=== PATIENT | female | born 1950 | race Caucasian/White ===

== ENCOUNTER 2018-12-09 21:24 | Observation (INO) ==
[2018-12-09] MEDS ORDERED: SODIUM CHLORIDE 0.9% 500 ML IV SCH (22:00)
[2018-12-09 22:21] LABS: Basophils # (auto) 0.04 K/uL (0-0.2); Basophils % (auto) 0.5 %; Eosinophils # (auto) 0.13 K/uL (0-0.5); Eosinophils % (auto) 1.6 %; Hematocrit (blood only) 42.8 % (37-47); Hemoglobin 14.8 g/dL (12.0-16.0); Immature Granulocytes # (auto) 0.02 K/uL (0.00-0.02); Immature Granulocytes % (auto) 0.2 %; Lymphocytes # (auto) 1.46 K/uL (1.2-3.4); Lymphocytes % (auto) 18.1 %; Mean Corpuscular Hgb Conc 34.6 g/dL (32-36); Mean Corpuscular Volume 95.7 fL (80-100); Mean Platelet Volume 10.1 fL (7.4-10.4); Monocytes % (auto) 7.4 %; Neutrophils # (auto) 5.83 K/uL (1.4-6.5); Neutrophils % (auto) 72.2 %; Platelet Count 276 K/uL (130-400); RDW Coefficient of Variation 12.9 % (11.5-14.5); RDW Standard Deviation 44.8 fL (36.4-46.3); Red Blood Count 4.47 M/uL (4.2-5.4); White Blood Count 8.08 K/uL (4.8-10.8)
--- NOTE | 2018-12-09 22:29 | CT Scan Report ---
HEAD CT NONCONTRAST CT DOSE: 537.48 mGy.cm HISTORY: Altered mental status. TECHNIQUE: Multiaxial CT images of the head were performed without the use of intravenous contrast. A utomated exposure control was utilized for this study. A dose lowering technique was utilized adheri ng to the principles of ALARA. Comparison: None. Findings: Partial opacification of the ethmoid air cells with a fluid level within the right maxillar y sinus. The mastoid air cells are clear. The calvarium and skull base are intact. The ventricles and sulci are within normal limits. There is no mass, hematoma, midline shift, or acute infarct. Impression: No acute intracranial abnormality. Acute sinusitis as described above. Electronically signed by: López Looney M.D. 12/09/2018 10:28 PM
[2018-12-09 22:32] LABS: Partial Thromboplastin Ratio 1.2; Partial Thromboplastin Time 32.2 Seconds (21.0-31.0); Prothrombin Time 10.6 Seconds (9.0-12.0)
[2018-12-09 22:38] LABS: Alanine Aminotransferase 28 U/L (12-78); Albumin Level 3.9 gm/dl (3.4-5.0); Aspartate Aminotransferase 25 U/L (15-37); BUN Creatinine Ratio 24.2 (10-20); Blood Urea Nitrogen 23 mg/dl (7-18); Calcium 9.1 mg/dl (8.5-10.1); Carbon Dioxide 25 mmol/L (21-32); Chloride 107 mmol/L (98-107); Creatinine Clr Calc Pharmacy 47.1 ml/min; Est GFR (African American) 74.2; Glucose 96 mg/dl (70-99); Magnesium 2.3 mg/dl (1.8-2.4); Potassium 3.7 mmol/L (3.5-5.1); Sodium 142 mmol/L (136-145)
[2018-12-09 22:46] LABS: Appearance Urine Clear (Clear); Bilirubin Urine Negative (Negative); Blood Urine Negative (Negative); Color Urine Yellow; Glucose Urine UA Negative (Negative); Ketones Urine Negative (Negative); Leukocyte Esterase Urine Negative (Negative); Nitrite Urine Negative (Negative); Protein Urine Negative (Negative); Specific Gravity Urine 1.015 (1.000-1.030); Urobilinogen Urine Negative (Negative); pH Urine 5.5 (4.5-7.5)
[2018-12-09 22:48] LABS: Albumin Globulin Ratio 1.1 (0.9-2); Alkaline Phosphatase 71 U/L (45-117); Bilirubin,Total 0.2 mg/dl (0.2-1); Globulin 3.7 gm/dl (2.5-4.0); Total Protein 7.6 gm/dl (6.4-8.2); Troponin I < 0.015 ng/ml (0-0.045)
[2018-12-09 23:01] LABS: T4 Free Thyroxine 0.97 ng/dl (0.8-1.6)
[2018-12-09 23:09] LABS: Amphetamines+Metham, Urine Neg (Neg); Barbiturates, Urine Neg (Neg); Benzodiazepine, Urine Neg (Neg); Cocaine, Urine Neg (Neg); MDMA (Ecstacy), Urine Pos (Neg); Methadone, Urine Neg (Neg); Opiate, Urine Neg (Neg); Phencyclidine, Urine Neg (Neg)
[2018-12-09 23:13] LABS: Lyme Ab IgM w/WB Rflx Negative (Negative)
[2018-12-09 23:14] LABS: Lyme Ab IgG w/WB Rflx Negative (Negative)
[2018-12-09] MEDS ORDERED: AMPICILLIN/SULBACTAM SOD 3,000 MG in 0.9 % SODIUM CHLORIDE 100 ML IV STA (23:35)
--- OUTSIDE RECORDS SUMMARY | 2018-12-09 23:44 | External Medical Summary | Continuity of Care Document ---
:1950 Author Name Richar Vale Address Unavailable Unavailable , Care Team Providers Name Role Phone Andi Cabrera M.D.. 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) Allergies and Adverse Reactions Gabapentin CAPS (Allergy) Gabapentin SOLN (Allergy) Gabapentin TABS (Allergy) Medications Levothyroxine Sodium 50 MCG Oral Tablet Refills: 0 buPROPion HCl ER (XL) 150 MG Oral Tablet Extended Release 24 Hour Refills: 0 Estradiol 1 MG Oral Tablet Refills: 0 Zolpidem Tartrate 10 MG Oral Tablet Refills: 0 Progesterone Micronized 100 MG Oral Capsule Refills: 0 Ibuprofen 800 MG Oral Tablet Refills: 0 Estradiol 0.5 MG Oral Tablet Refills: 0 Multi-Vitamin TABS Refills: 0 Calcium 600 TABS Refills: 0 Procedures History of Section Status: Comp leted History of Oophorectomy Status: Complete d History of Hip Repair Reconstruction Of Gluteus Medius Muscl e Status: Completed Tendon Immunizations Immunizations not documented Family History Mother Family history of Hypertension (V17.49) Status: Active Father Family history of Hypertension (V17.49) Status: Active Social History - Smoking Status Former smoker Interventions Follow-ups/ReferralsFollow-up as needed; Done: 09 Apr 2014 Plan of Treatment Planned Observations Planned Goals not documented Results No Known Results Results not documented Encounters Appointment; David Cabrera M.D. 09-Apr-2014 16:00 Encounter Diagnosis: Problem not documented
[2018-12-10] MEDS ORDERED: ASPIRIN CHEW 324 MG PO STA (00:51)
[2018-12-10] MEDS ORDERED: NITROGLYCERIN SL 0.4 MG/TAB TAB SL PRN (01:47)
[2018-12-10] MEDS ORDERED: ONDANSETRON INJ 2 MG/ML 2 ML VIAL IV PRN (01:47)
[2018-12-10] MEDS ORDERED: ACETAMINOPHEN 325 MG TAB PO PRN (01:47)
[2018-12-10] MEDS ORDERED: PHARMACIST DISCHARGE MED REC CONSULT PRN (01:47)
--- NOTE | 2018-12-10 02:14 | Emergency Department Note ---
History of Present Illness General Chief complaint: Neuro Symptoms/Deficit Stated complaint: DISORIENTED,MEMORY LOSS Time Seen by Provider: 12/09/18 21:33 History of Present Illness This is a 67-year-old female presenting to the emergency department for evaluation of memory loss symptoms for the past 2 days. Much of the history is provided by a female friend who accompanies the patient to the department. Marialuisa guzman the patient returned from [place] late last week after visiting family. The patient has had intermittent episodes of forgetfulness and not making sense with words and phrases according to her female friend. Evidently today police showed up at the patient's home, and the patient was unable to determine how or why this occurred. The patient called her sister this afternoon, but does not r ecall this conversation. The patient herself has a history of hypothyroidism and progesterone use. She does not complain of headache, neck pain, chest pain, chest tightness, shortness of breath, palpitations, abdominal pain, numbness, or paresthesias. The patient does not readily drink alcohol or smoke tobacco. She does not have other significant chronic medical disease. She rates her current discomfort as 0/10, and admits that she is here at the urging of her friends and family. Home Medications Home Medications Medication Instructions Recorded Confirmed Type bupropion HCl [Wellbutrin XL] 150 mg PO DAILY 12/09/18 12/09/18 History estradiol 0.25 mg TRANSDERMAL 2XWK 12/09/18 12/09/18 History levothyroxine 50 mcg PO DAILY 12/09/18 12/09/18 History progesterone micronized 100 mg PO UD 12/09/18 12/09/18 History Allergies Allergy/AdvReac Type Severity Reaction Status Date / Time animal dander Allergy Mild EYES RED Unverified 04/03/14 11:28 AND SWOLLEN mold Allergy Mild EYES WATER Unverified 04/03/14 11:28 No Known Allergies Allergy Unknown NONE Verified 04/03/14 11:28 NEUROTIN Allergy Severe HIVES Uncoded 04/03/14 11:28 Dust Allergy Mild EYE WATER Uncoded 04/03/14 11:28 Past Med/Surg History Medical History Hypothyroid Social History Preferred Language: Marshallese Communication Ability: Effective Milk Delivery Driver Required: No Beliefs That Will Affect Care: Tenriism Tenriism Beliefs: Denominational Current Living Situation: Alone Other Information That Helps Us Care for You: No Feels Safe at Home: Yes Safety Concerns: Feels Safe At This Time Smoking Status: Never smoker Hx Alcohol Use: Yes Alcohol type: wine Hx Substance Use: No Review of Systems A total of 10 systems reviewed and were otherwise negative Physical Exam Vital Signs Vital Signs - 24 hr 12/09/18 21:28 12/09/18 22:59 12/10/18 00:02 Temperature 36.4 C L Temperature Source Oral Sepsis Recent Fever Within 48 Hours No Sepsis Action Taken by Nursing No Action Required Pulse Rate 71 Pulse Rate [Finger] 72 73 Respiratory Rate 16 16 16 Respiratory Effort / Characteristics Non-Labored Spontaneous Non-Labored Spontaneous Respiratory Depth Normal Normal Respiratory Pattern Blood Pressure 193/91 H Blood Pressure [Left Arm] 150/101 H 166/77 H Blood Pressure Mean 125 Blood Pressure Mean [Left Arm] 117 106 Blood Pressure Position Sitting Pulse Oximetry 99 100 98 Oxygen Delivery Method Room Air Room Air Room Air 12/10/18 00:51 12/10/18 01:30 12/10/18 04:09 Temperature 36.7 C 36.6 C Temperature Source Oral Oral Sepsis Recent Fever Within 48 Hours Sepsis Action Taken by Nursing Pulse Rate Pulse Rate [Finger] 68 75 68 Respiratory Rate 20 18 20 Respiratory Effort / Characteristics Non-Labored Non-Labored Respiratory Depth Normal Normal Respiratory Pattern Regular Regular Blood Pressure Blood Pressure [Left Arm] 162/85 H 170/84 H 128/73 Blood Pressure Mean Blood Pressure Mean [Left Arm] 110 112 91 Blood Pressure Position Pulse Oximetry 100 98 91 Oxygen Delivery Method Room Air Room Air Room Air VITALS: Vitals are noted on the nurse's note and reviewed by myself. Vital s igns stable. GENERAL: Well-developed, well-nourished, white female, who is in no acute distress and resting comfortably. Patient is cooperative with the examination. HEAD: Normocephalic atraumatic. EARS: External ear normal. External auditory canals clear, tympanic membranes pearly [place] without erythema or effusion bilaterally. EYES: Pupils equal round and reactive to light and accommodation. Conjunctivae without injection, sclerae without icterus. Extraocular movements intact. NOSE: Patent, turbinates without inflammation or discharge. MOUTH: Mucous membranes moist. Tonsils are not enlarged. Pharynx without erythema, blood, or exudate. Uvula midline. Airway patent. NECK: Supple without nuchal rigidity. No lymphadenopathy. No thyromegaly. Cervical spine is nontender. HEART: Regular rate and rhythm without murmurs gallops or rubs. LUNGS: Clear to auscultation bilaterally without wheezes, rales or rhonchi. No retractions or accessory muscle use. ABDOMEN: Positive normal bowel sounds x 4. Soft, nontender, without masses or organomegaly. No guarding or rebound tenderness. MUSCULOSKELETAL: No muscle atrophy, erythema, or edema noted. Full range of motion in all extremities. No tenderness to palpation. Normal gait. Strength 5/5 throughout. NEURO: Patient was alert and oriented to person place and time. CN II through XII grossly intact. No focal neurological deficits. Deep tendon reflexes 2+ throughout. GCS 15. SKIN: The skin was without rashes, erythema, edema, or bruising. Capillary refill less than 2 seconds. Course Administered Medications Gadobutrol (Gadavist 65ml) 5.6 ml IV ONCE PRN PRN Reason: Interaction Checking Stop: 12/14/18 03:28 Last Admin: 12/10/18 03:18 Dose: 5.6 ml Documented by: [id number] Discontinued Medications Aspirin (Aspirin) 324 mg PO NOW STA Stop: 12/10/18 00:52 Last Admin: 12/10/18 00:55 Dose: 324 mg Documented by: [id number] Diphenhydramine HCl (Benadryl Capsule) 25 mg PO NOW ONE Stop: 12/10/18 04:09 Last Admin: 12/10/18 04:18 Dose: 25 mg Documented by: [id number] Diphenhydramine HCl (Benadryl Capsule) Confirm Administered Dose 25 mg .ROUTE .STK-MED ONE Stop: 12/10/18 04:16 Last Admin: 12/10/18 04:16 Dose: Not Given Documented by: [id number] Sodium Chloride (Nss) 500 mls @ 125 mls/hr IV .Q4H LUISA Stop: 01/08/19 21:59 Last Infusion: 12/10/18 01:48 Dose: 0 mls/hr Documented by: [id number] Admin: 12/09/18 22:29 Dose: 125 mls/hr Documented by: [id number] Ampicillin Sodium/Sulbactam Sodium 3,000 mg/ Sodium Chloride 108 mls @ 200 mls/hr IV NOW STA Stop: 12/10/18 00:07 Last Infusion: 12/10/18 00:36 Dose: 0 mls/hr Documented by: [id number] Admin: 12/10/18 00:01 Dose: 200 mls/hr Documented by: [id number] Medical Decision Making Differential Diagnosis Differential includes acute coronary syndrome, myocardial infarction, CVA, TIA, anemia, infection, pneumonia, UTI, pyelonephritis, poor nutrition, dehydration, electrolyte disturbance,hypoglycemia, and others Laboratory Data Result diagrams: 12/09/18 22:08 12/09/18 22:08 Lab Results 12/09/18 12/09/18 12/09/18 Range/Units 21:39 22:08 22:08 WBC 8.08 (4.8-10.8) K/uL RBC 4.47 (4.2-5.4) M/uL Hgb 14.8 (12.0-16.0) g/dL Hct 42.8 (37-47) % MCV 95.7 (80-100) fL MCH 33.1 (25-34) pg MCHC 34.6 (32-36) g/dL RDW Std Deviation 44.8 (36.4-46.3) fL RDW Coeff of Karli 12.9 (11.5-14.5) % Plt Count 276 (130-400) K/uL MPV 10.1 (7.4-10.4) fL Immature Gran % (Auto) 0.2 % Neut % (Auto) 72.2 % Lymph % (Auto) 18.1 % [place] % (Auto) 7.4 % Eos % (Auto) 1.6 % Baso % (Auto) 0.5 % Immature Gran # (Auto) 0.02 (0.00-0.02) K/uL Neut # (Auto) 5.83 (1.4-6.5) K/uL Lymph # (Auto) 1.46 (1.2-3.4) K/uL [place] # (Auto) 0.60 H (0.11-0.59) K/uL Eos # (Auto) 0.13 (0-0.5) K/uL Baso # (Auto) 0.04 (0-0.2) K/uL PT 10.6 (9.0-12.0) Seconds INR 1.0 (0.9-1.1) APTT 32.2 H (21.0-31.0) Seconds PTT Ratio 1.2 Sodium (136-145) mmol/L Potassium (3.5-5.1) mmol/L Chloride (98-107) mmol/L Carbon Dioxide (21-32) mmol/L Anion Gap (3-11) BUN (7-18) mg/dl Creatinine (0.6-1.2) mg/dl Est Cr Clr Drug Dosing ml/min Est GFR ( Amer) Est GFR (Non-Af Amer) BUN/Creatinine Ratio (10-20) Glucose (70-99) mg/dl POC Glucose 91 (70-99) Lactate (0.4-2.0) mmol/L Calcium (8.5-10.1) mg/dl Magnesium (1.8-2.4) mg/dl Total Bilirubin (0.2-1) mg/dl AST (15-37) U/L ALT (12-78) U/L Alkaline Phosphatase (45-117) U/L Troponin I (0-0.045) ng/ml Total Protein (6.4-8.2) gm/dl Albumin (3.4-5.0) gm/dl Globulin (2.5-4.0) gm/dl Albumin/Globulin Ratio (0.9-2) TSH (0.300-4.500) uIu/ml Free T4 (0.8-1.6) ng/dl Urine Color Urine Appearance (Clear) Urine pH (4.5-7.5) Ur Specific [place] (1.000-1.030) Urine Protein (Negative) Urine Glucose (UA) (Negative) Urine Ketones (Negative) Urine Blood (Negative) Urine Nitrite (Negative) Urine Bilirubin (Negative) Urine Urobilinogen (Negative) Ur Leukocyte Esterase (Negative) Urine Opiates Screen (Neg) Ur Methadone, Qual (Neg) Urine Barbiturates (Neg) Ur Phencyclidine (PCP) (Neg) U Amphetamin/Meth Scrn (Neg) MDMA (Ecstasy) Screen (Neg) U Benzodiazepines Scrn (Neg) Ur Cocaine Metabolite (Neg) U Marijuana (THC) Screen (Neg) Lyme Disease IgG Ab (Negative) Lyme Disease IgM Ab (Negative) 12/09/18 12/09/18 12/09/18 Range/Units 22:08 22:08 22:08 WBC (4.8-10.8) K/uL RBC (4.2-5.4) M/uL Hgb (12.0-16.0) g/dL Hct (37-47) % MCV (80-100) fL MCH (25-34) pg MCHC (32-36) g/dL RDW Std Deviation (36.4-46.3) fL RDW Coeff of Karli (11.5-14.5) % Plt Count (130-400) K/uL MPV (7.4-10.4) fL Immature Gran % (Auto) % Neut % (Auto) % Lymph % (Auto) % [place] % (Auto) % Eos % (Auto) % Baso % (Auto) % Immature Gran # (Auto) (0.00-0.02) K/uL Neut # (Auto) (1.4-6.5) K/uL Lymph # (Auto) (1.2-3.4) K/uL [place] # (Auto) (0.11-0.59) K/uL Eos # (Auto) (0-0.5) K/uL Baso # (Auto) (0-0.2) K/uL PT (9.0-12.0) Seconds INR (0.9-1.1) APTT (21.0-31.0) Seconds PTT Ratio Sodium 142 (136-145) mmol/L Potassium 3.7 (3.5-5.1) mmol/L Chloride 107 (98-107) mmol/L Carbon Dioxide 25 (21-32) mmol/L Anion Gap 9.0 (3-11) BUN 23 H (7-18) mg/dl Creatinine 0.93 (0.6-1.2) mg/dl Est Cr Clr Drug Dosing 47.1 ml/min Est GFR ( Amer) 74.2 Est GFR (Non-Af Amer) 64.0 BUN/Creatinine Ratio 24.2 H (10-20) Glucose 96 (70-99) mg/dl POC Glucose (70-99) Lactate 1.1 (0.4-2.0) mmol/L Calcium 9.1 (8.5-10.1) mg/dl Magnesium 2.3 (1.8-2.4) mg/dl Total Bilirubin 0.2 (0.2-1) mg/dl AST 25 (15-37) U/L ALT 28 (12-78) U/L Alkaline Phosphatase 71 (45-117) U/L Troponin I < 0.015 (0-0.045) ng/ml Total Protein 7.6 (6.4-8.2) gm/dl Albumin 3.9 (3.4-5.0) gm/dl Globulin 3.7 (2.5-4.0) gm/dl Albumin/Globulin Ratio 1.1 (0.9-2) TSH 4.700 H (0.300-4.500) uIu/ml Free T4 0.97 (0.8-1.6) ng/dl Urine Color Urine Appearance (Clear) Urine pH (4.5-7.5) Ur Specific [place] (1.000-1.030) Urine Protein (Negative) Urine Glucose (UA) (Negative) Urine Ketones (Negative) Urine Blood (Negative) Urine Nitrite (Negative) Urine Bilirubin (Negative) Urine Urobilinogen (Negative) Ur Leukocyte Esterase (Negative) Urine Opiates Screen (Neg) Ur Methadone, Qual (Neg) Urine Barbiturates (Neg) Ur Phencyclidine (PCP) (Neg) U Amphetamin/Meth Scrn (Neg) MDMA (Ecstasy) Screen (Neg) U Benzodiazepines Scrn (Neg) Ur Cocaine Metabolite (Neg) U Marijuana (THC) Screen (Neg) Lyme Disease IgG Ab Negative (Negative) Lyme Disease IgM Ab Negative (Negative) 12/09/18 12/09/18 12/09/18 Range/Units 22:08 22:37 22:37 WBC (4.8-10.8) K/uL RBC (4.2-5.4) M/uL Hgb (12.0-16.0) g/dL Hct (37-47) % MCV (80-100) fL MCH (25-34) pg MCHC (32-36) g/dL RDW Std Deviation (36.4-46.3) fL RDW Coeff of Karli (11.5-14.5) % Plt Count (130-400) K/uL MPV (7.4-10.4) fL Immature Gran % (Auto) % Neut % (Auto) % Lymph % (Auto) % [place] % (Auto) % Eos % (Auto) % Baso % (Auto) % Immature Gran # (Auto) (0.00-0.02) K/uL Neut # (Auto) (1.4-6.5) K/uL Lymph # (Auto) (1.2-3.4) K/uL [place] # (Auto) (0.11-0.59) K/uL Eos # (Auto) (0-0.5) K/uL Baso # (Auto) (0-0.2) K/uL PT (9.0-12.0) Seconds INR (0.9-1.1) APTT (21.0-31.0) Seconds PTT Ratio Sodium (136-145) mmol/L Potassium (3.5-5.1) mmol/L Chloride (98-107) mmol/L Carbon Dioxide (21-32) mmol/L Anion Gap (3-11) BUN (7-18) mg/dl Creatinine (0.6-1.2) mg/dl Est Cr Clr Drug Dosing ml/min Est GFR ( Amer) Est GFR (Non-Af Amer) BUN/Creatinine Ratio (10-20) Glucose (70-99) mg/dl POC Glucose (70-99) Lactate (0.4-2.0) mmol/L Calcium (8.5-10.1) mg/dl Magnesium (1.8-2.4) mg/dl Total Bilirubin (0.2-1) mg/dl AST (15-37) U/L ALT (12-78) U/L Alkaline Phosphatase (45-117) U/L Troponin I (0-0.045) ng/ml Total Protein (6.4-8.2) gm/dl Albumin (3.4-5.0) gm/dl Globulin (2.5-4.0) gm/dl Albumin/Globulin Ratio (0.9-2) TSH Cancelled (0.300-4.500) uIu/ml Free T4 (0.8-1.6) ng/dl Urine Color Yellow Urine Appearance Clear (Clear) Urine pH 5.5 (4.5-7.5) Ur Specific [place] 1.015 (1.000-1.030) Urine Protein Negative (Negative) Urine Glucose (UA) Negative (Negative) Urine Ketones Negative (Negative) Urine Blood Negative (Negative) Urine Nitrite Negative (Negative) Urine Bilirubin Negative (Negative) Urine Urobilinogen Negative (Negative) Ur Leukocyte Esterase Negative (Negative) Urine Opiates Screen Neg (Neg) Ur Methadone, Qual Neg (Neg) Urine Barbiturates Neg (Neg) Ur Phencyclidine (PCP) Neg (Neg) U Amphetamin/Meth Scrn Neg (Neg) MDMA (Ecstasy) Screen Pos H (Neg) U Benzodiazepines Scrn Neg (Neg) Ur Cocaine Metabolite Neg (Neg) U Marijuana (THC) Screen Neg (Neg) Lyme Disease IgG Ab (Negative) Lyme Disease IgM Ab (Negative) Imaging Data Radiologist's Impression: HEAD CT NONCONTRAST CT DOSE: 537.48 mGy.cm HISTORY: Altered mental status. TECHNIQUE: Multiaxial CT images of the head were performed without the use of intravenous contrast. Automated exposure control was utilized for this study. A dose lowering technique was utilized adhering to the principles of ALARA. Comparison: None. Findings: Partial opacification of the ethmoid air cells with a fluid level within the right maxillary sinus. The mastoid air cells are clear. The calvarium and skull base are intact. The ventricles and sulci are within normal limits. There is no mass, hematoma, midline shift, or acute infarct. Impression: No acute intracranial abnormality. Acute sinusitis as described above. ECG Data Additional Comments: Normal sinus rhythm @70bpm Normal ECG When compared with ECG of 30-MAR-2014 12:06, No significant change was found MDM Narrative Physical exam and history were performed. Nursing notes, EMR, and Medication List were personally reviewed. Patient appears to have episodes of memory loss for as long as the past 2 days or short as the past 6 hours. On examination she does have full strength and range of motion throughout her extremities. There is no facial drooping, and the patient appears pleasant and is able to describe much of the history. The patient's friend does help fill in the blanks, and there are some concerning issues with having the police at her home as well as not remembering a phone call to her sister today. IV access was established and labs were obtained. The patient's EKG is as above and was normal sinus rhythm. She was placed on the classroom monitor. The patient was gently hydrated with normal saline. CT was ordered. The case was discussed with my attending who remained involved in patient care and decision-making. The patient's blood work is as above and was reviewed. She does not have a significantly elevated white blood cell count, gross anemia, bandemia, or significant electrolyte imbalance. Transaminases are not diagnostic. Troponin x1 is negative. TSH is 4.7. Lactic is negative. INR is 1.0. CT scan of the head was reviewed by myself and radiology and does not show an acute intracranial process. She does appear to have an acute ethmoid sinusitis, and was started on Unasyn IV. She certainly does not appear with signs of meningitis or encephalitis. On reevaluation the patient continues to appear well and nontoxic. She continues without neurologic deficit or additional symptoms. I had a lengthy discussion with the patient regarding options of care. Do have concern that her symptoms could represent a TIA or other similar process. Overall the patient does not appear well for discharge home. I discussed the case with the on-call hospitalist, who agreed to evaluate her here in the department. Please see their dictation for further patient course, plan, and disposition. The chart was completed utilizing [employer] Speech Voice Recognition Software. Grammatical errors, random word insertions, pronoun errors, and incomplete sentences are an occasional consequence of this system due to software limitations, ambient noise, and hardware issues. Any formal questions or jalil rns about the content, text, or information contained within the body of this dictation should be directly addressed to the provider for clarification. . Impression & Plan Episodic memory loss, Acute ethmoidal sinusitis Discharge Plan Visit Data *Final* Discharge Date/Time: 12/10/18 01:27 Chief Complaint: Neuro Symptoms/Deficit Stated Complaint: DISORIENTED,MEMORY LOSS ED Provider: Mariano Leung ED Midlevel Provider: David Harris Discharge Problem: Episodic memory loss, Acute ethmoidal sinusitis Patient Disposition: Admitted As Inpatient Discharge Instructions Interventions: ED Discharge Assessment Last Done: 12/10/18 01:27 Discharge Problem: Acute ethmoidal sinusitis Qualifiers: Recurrence: not specified as recurrent Qualified Code(s): J01.20 - Acute ethmoidal sinusitis, unspecified
--- NOTE | 2018-12-10 02:14 | History and Physical Report ---
DATE OF ADMISSION: 12/10/2018 CHIEF COMPLAINT: Memory issues. HISTORY OF PRESENT ILLNESS: This is a 67-year-old female with past medical history significant for hypothyroidism; hyperlipidemia, not on any medication; Dupuytren's contracture to both hands; insomnia. Presents with some memory issues. The patient states she went to [place], [place], for 1 month because her 3 daughters stay there. She just came back on Sunday. She drove 12 hours each day for 2 days. Her daughters are worried that she has some memory issues, she could not remember one whole day after coming to the [place], but she thinks it is all because of the travel and also one of her daughters is getting , all those things stressed her out and caused this problem. There was also some issue of winterizer coming to her house, but when asked her she stated her neighbor called winterizer because some plants in her house and on the neighbor's house were cut short . But when asked today's date, she needed some help and she thought it was October, then she told it is November; year, initially she told 2019, then she told 2018. When asked what is the name of the hospital, she thought it was [facility], but otherwise was able to subtract 7 from 100 twice. Oriented to name, could tell her name and her date of okay. Initially when she came here, her blood pressure was high. Systolic blood pressure in the 160s currently. She does not take any blood pressure medications. Resting comfortably. Otherwise stable. Denies any headaches, no dizziness. She has history of ocular migraines and she gets occasional flashes in her eyes. She says mild headache in the frontal region but denies any dizziness. No earaches, no runny nose, no sore throat, no difficulty swallowing. No cough, no fever, no chills, no chest pain, no shortness of breath, no nausea, no vomiting, no abdominal pain. Normal bowel and bladder movements. No hematuria or burning micturition. No melena or hematochezia. No swelling of the legs. No rash. ALLERGIES: ENVIRONMENTAL, GABAPENTIN. PAST MEDICAL HISTORY: As mentioned above. PAST SURGICAL HISTORY: , colonoscopy, ligation of oviducts, removal of the right ovary. MEDICATIONS: The patient is on bupropion 150 mg p.o. daily, estradiol 1 patch 2 times a week, progesterone micronized 100 mg capsule daily from 1st to the 7th of each month, levothyroxine 50 mcg p.o. daily, ibuprofen p.r.n., multivitamins daily. FAMILY HISTORY: Significant for mother has glaucoma, hypertension, emphysema, macular degeneration. Father has hypertension. SOCIAL HISTORY: Lives alone. No smoking history. Alcohol drinks socially. No drug use. REVIEW OF SYMPTOMS: As per HPI. Rest of the review of symptoms negative. PHYSICAL EXAMINATION: GENERAL: The patient is of moderate build, not in acute distress. VITAL SIGNS: Temperature 36.4, blood pressure when she came 190/96, currently 166/77, pulse 73, respiratory rate 16, oxygen 98% on room air. HEENT: No pallor, no icterus. Pupils equal, round, and reactive to light. NECK: No JVD, no neck masses, no carotid bruits. CARDIOVASCULAR: S1, S2 heard, regular rate and rhythm, no murmur, no gallop. RESPIRATORY SYSTEM: Clear to auscultation bilaterally. No wheezing, no crackles. ABDOMEN: Soft, bowel sounds present. Nontender. No distention. CENTRAL NERVOUS SYSTEM: Cranial nerves II-XII grossly intact. Power 5/5 in all extremities. No pronator drift. Coordination of movements normal. Sensation is intact. EXTREMITIES: No edema, no erythema. LABORATORY DATA: WBC 8, hemoglobin 14.8, hematocrit 42.8, platelets 276. PT 10.6, INR 1, APTT 32.2. Sodium 142, potassium 3.7, chloride 107, bicarbonate 25, BUN 23, creatinine 0.9, serum glucose 96, lactate 1.1, calcium 9.1, magnesium 2.3, total bilirubin 0.2, AST 25, ALT 28, alkaline phosphatase 71, troponin I less than 0.015. TSH 4.7, free T4 is 0.9. Urinalysis negative. Toxicology screen positive for ecstasy, otherwise negative study. Lyme screen negative. IMAGING DATA: Chest x-ray, no acute findings seen. CT of the head, some ethmoid sinusitis, otherwise no acute intracranial abnormality. EKG: Normal sinus rhythm with rate of 70, no acute ST changes seen. ASSESSMENT AND PLAN: This is a 67-year-old female who presents with questionable memory issues. 1. Transient or episodic memory loss. The patient attributes it to her stress, she stated she drove for 2 days 12 hours from [place] where she stayed with her daughters for 1 month, and one of the daughters is getting . Blood pressure was high when she came in. Initial workup is negative. She needed some help with the dates and place. Otherwise answered all other questions appropriately. Initial CT of the head is negative. We will do a TIA workup with MRI of the head, carotid Dopplers, echocardiogram, PT, OT, speech evaluation with neuro consult. Closely monitor on tele floor. Her EKG is okay. Will give a dose of aspirin and start on aspirin 81 mg daily. Follow fasting lipid profile. Follow echocardiogram. Monitor the blood pressure. 2. High blood pressure, possible situational, but we will follow the echocardiogram for an LVH. We will monitor the blood pressure. 3. History of hyperlipidemia, not on medications. Follow a fasting lipid profile. 4. Hypothyroidism. Continue Synthroid. 5. Deep venous thrombosis prophylaxis, sequential compression devices for now. DISPOSITION: Closely monitor in the tele floor. Level 1 full code. MTDD
[2018-12-10] MEDS ORDERED: GADOBUTROL 65ML VIAL IV PRN (03:29)
[2018-12-10] MEDS ORDERED: LEVOTHYROXINE SODIUM 50 MCG TABLET PO SCH (06:30)
--- NOTE | 2018-12-10 06:32 | XRay Report ---
XR chest 1V portable CLINICAL HISTORY: Altered mental status. COMPARISON STUDY: Chest radiograph February 10, 2010. FINDINGS: Lung volumes are normal. No consolidation is present. No pneumothorax or pleural effusion. Cardiac size is normal. Mediastinal contours are normal. The appearance of the chest is unchanged. IMPRESSION: No acute cardiopulmonary findings. Electronically signed by: Freddie Mistry M.D. 12/10/2018 6:31 AM
[2018-12-10 06:45] LABS: Basophils # (auto) 0.05 K/uL (0-0.2); Basophils % (auto) 0.8 %; Eosinophils # (auto) 0.17 K/uL (0-0.5); Eosinophils % (auto) 2.6 %; Hematocrit (blood only) 37.8 % (37-47); Hemoglobin 13.1 g/dL (12.0-16.0); Immature Granulocytes # (auto) 0.02 K/uL (0.00-0.02); Immature Granulocytes % (auto) 0.3 %; Lymphocytes # (auto) 1.66 K/uL (1.2-3.4); Lymphocytes % (auto) 25.7 %; Mean Corpuscular Hgb Conc 34.7 g/dL (32-36); Mean Corpuscular Volume 95.2 fL (80-100); Monocytes # (auto) 0.63 K/uL (0.11-0.59); Monocytes % (auto) 9.8 %; Neutrophils # (auto) 3.92 K/uL (1.4-6.5); Neutrophils % (auto) 60.8 %; Platelet Count 226 K/uL (130-400); RDW Coefficient of Variation 13.1 % (11.5-14.5); RDW Standard Deviation 45.5 fL (36.4-46.3); Red Blood Count 3.97 M/uL (4.2-5.4); White Blood Count 6.45 K/uL (4.8-10.8)
--- NOTE | 2018-12-10 07:06 | Magnetic Resonance Report ---
MRI OF THE BRAIN COMBO CLINICAL HISTORY: Memory loss. COMPARISON STUDY: CT of the brain dated 12/09/2018. TECHNIQUE: MRI of the brain was performed utilizing various T1 and T2-weighted sequences in the axial , sagittal, and coronal planes. Contrast-enhanced sequences were acquired following the administratio n of 5.6 cc of Gadavist. FINDINGS: Brain parenchyma: There is minimal subcortical and periventricular microangiopathic disease. The brai n parenchyma is otherwise normal in appearance. There is no hemorrhage or mass effect. There is no re stricted diffusion to suggest acute ischemia. No enhancing mass lesion is identified on the postcontr ast images. Decker-white matter differentiation is preserved. No extra-axial fluid collection is seen. The cerebellar tonsils are normal in configuration. Ventricles, sulci, and cisterns: Normal in configuration. Pituitary and sella: Unremarkable. Intracranial vasculature: Normal flow voids are maintained at the skull base. Orbits: The bony orbits are grossly intact. Orbital contents are normal in appearance. Sinuses and mastoids: There is moderate mucosal thickening within the right maxillary antrum and the ethmoid sinuses. Mild mucosal thickening is seen within the left maxillary, sphenoid, and frontal sin uses. There is a trace right mastoid effusion. Calvarium: Unremarkable. Cervical cord: Partially visualized cervical spinal cord is normal in morphology and signal intensity . IMPRESSION: No acute intracranial abnormality. Electronically signed by: Efrem Goodwin M.D. 12/10/2018 7:04 AM
--- NOTE | 2018-12-10 07:07 | Ultrasound Report ---
ULTRASOUND OF THE CAROTID ARTERIES CLINICAL HISTORY: Memory loss. COMPARISON STUDY: No priors. TECHNIQUE: Real-time, grayscale, and color Doppler sonography of the carotid arteries is performed. I mages are reviewed in the transverse and longitudinal planes. FINDINGS: Blood pressure in the right arm measures 126/76 and blood pressure in the left arm measures 126/63. The carotid arteries are patent bilaterally and demonstrate antegrade flow. There is no significant a therosclerotic plaque identified. Normal doppler arterial waveforms are seen throughout. Velocity claribel surements are listed below. Common carotid peak systolic velocity (cm/sec): RIGHT: 61 LEFT: 69 ICA proximal peak systolic velocity (cm/sec): RIGHT: 55 LEFT: 58 ICA mid peak systolic velocity (cm/sec): RIGHT: 55 LEFT: 75 ICA distal peak systolic velocity (cm/sec): RIGHT: 74 LEFT: 79 ICA/CC peak systolic ratio: RIGHT: 1.2 LEFT: 1.1 Antegrade flow was shown in the vertebral arteries. The external carotid arteries are patent. IMPRESSION: 1. There is no sonographic evidence of hemodynamically significant stenosis in the right or left brooks tid arterial system. 2. Antegrade flow is shown in the vertebral arteries. Electronically signed by: Efrem Goodwin M.D. 12/10/2018 7:06 AM
[2018-12-10 07:19] LABS: BUN Creatinine Ratio 29.3 (10-20); Calcium 8.3 mg/dl (8.5-10.1); Creatinine Clr Calc Pharmacy 62.5 ml/min; Est GFR (African American) 104.6; Est GFR (Non-African American) 90.3; Potassium 3.8 mmol/L (3.5-5.1)
[2018-12-10 07:43] LABS: Estimated Average Glucose 97 mg/dl
[2018-12-10] MEDS: AMOXICILLIN/CLAVULANATE 875 MG TAB PO SCH ×2 (08:12→16:59)
[2018-12-10] MEDS ORDERED: ASPIRIN 81 MG ECTAB PO SCH (09:00)
[2018-12-10] MEDS ORDERED: BuPROPion XL 150 MG TABCR PO SCH (09:00)
--- NOTE | 2018-12-10 12:13 | Hospitalist Progress Note ---
Date of Service December 10, 2018 Assessment & Plan (1) Episodic memory loss: Memory loss seems to be resolved She has been stressed out recently with overwork and lack of sleep Recent long drive of 12 hours for 2 days in a row Clinically better and no evidence of memory impairment MRI of the brain, CT scan of the brain and carotid Doppler have been negative Awaiting of echocardiogram and neuro evaluation Likely home this afternoon Present on Admission?: Yes (2) Hypothyroid: Continue replacement (3) HTN (hypertension): No history of hypertension Likely secondary to anxiety Blood pressure seems to be normalized Subjective 12/10 The patient was seen and examined in telemetry unit She is 67 years old female with significant past medical history of hyperlipidemia and hypothyroidism was admitted with episodic memory impairment She has been overworked recently without much rest in between Also he has a long history of driving than 12 hours Denies any significant complaints today except with #1 memory impairment Review of Systems Review of Systems: 1 systems reviewed and are unremarkable except as noted below Constitutional: + fatigue and + weakness Physical Exam Physical Exam: No apparent distress at rest Constitutional: well developed and well nourished; no acute distress Eyes: PERRL, conjunctivae normal, anicteric sclerae ENMT: external ear and nose normal, oropharynx normal Neck: trachea midline, no thyromegaly Respiratory: normal respiratory effort Auscultation: lungs clear to auscultation bilaterally Cardiovascular: Rate/Rhythm: regular rate and regular rhythm Heart Sounds: normal S1 and normal S2; no murmur Gastrointestinal (Abdomen): Inspection/Auscultation: abdomen normal to i nspection and normal bowel sounds Percussion/Palpation: abdomen soft; abdomen nontender Musculoskeletal: no cyanosis or clubbing, extremities motor strength 5/5 Neurologic: PERRL, EOMI, accommodation nl, no face palsy, no dysarthria Results & Data Vital Signs (Past 12 Hours) Vital Signs Temp Pulse Resp BP Pulse Ox 12/10/18 11:11 96 12/10/18 11:00 76 18 134/79 95 12/10/18 04:09 36.6 C 68 20 128/73 91 12/10/18 01:30 36.7 C 75 18 170/84 H 98 12/10/18 00:51 68 20 162/85 H 100 Laboratory Results Short CBC 12/09/18 12/10/18 Range/Units 22:08 06:18 WBC 8.08 6.45 (4.8-10.8) K/uL Hgb 14.8 13.1 (12.0-16.0) g/dL Hct 42.8 37.8 (37-47) % Plt Count 276 226 (130-400) K/uL BMP 12/09/18 12/10/18 22:08 06:18 Sodium 142 144 Potassium 3.7 3.8 Chloride 107 113 H Carbon Dioxide 25 25 BUN 23 H 21 H Creatinine 0.93 0.70 Glucose 96 77 Calcium 9.1 8.3 L Cardiac Enzymes 12/09/18 Range/Units 22:08 Troponin I < 0.015 (0-0.045) ng/ml Liver Function 12/09/18 Range/Units 22:08 Total Bilirubin 0.2 (0.2-1) mg/dl AST 25 (15-37) U/L ALT 28 (12-78) U/L Alkaline Phosphatase 71 (45-117) U/L Albumin 3.9 (3.4-5.0) gm/dl Urine 12/09/18 Range/Units 22:37 Urine Color Yellow Urine Appearance Clear (Clear) Urine pH 5.5 (4.5-7.5) Ur Specific [place] 1.015 (1.000-1.030) Urine Protein Negative (Negative) Urine Glucose (UA) Negative (Negative) Medications Administered Current Inpatient Medications Acetaminophen (Tylenol) 650 mg PO Q4H PRN PRN Reason: Pain or Fever Stop: 01/09/19 01:46 Amoxicillin/Clavulanate Potassium (Augmentin 875mg) 1 tab PO BIDM [facility] Stop: 12/20/18 07:59 Last Admin: 12/10/18 08:12 Dose: 1 tab Documented by: Aspirin (Ecotrin Ectab) 81 mg PO QAM [facility] Stop: 01/09/19 08:59 Last Admin: 12/10/18 08:11 Dose: 81 mg Documented by: Bupropion HCl (Wellbutrin-Xl) 150 mg PO DAILY [facility] Stop: 01/09/19 08:59 Last Admin: 12/10/18 08:12 Dose: 150 mg Documented by: Gadobutrol (Gadavist 65ml) 5.6 ml IV ONCE PRN PRN Reason: Interaction Checking Stop: 12/14/18 03:28 Last Admin: 12/10/18 03:18 Dose: 5.6 ml Documented by: Levothyroxine Sodium (Synthroid) 50 mcg PO DAILYBB LUISA Stop: 01/09/19 06:29 Last Admin: 12/10/18 05:50 Dose: 50 mcg Documented by: Miscellaneous Information (Pharmacist Discharge Med Rec Consult) 1 ea N/A UD PRN PRN Reason: Consult Stop: 01/09/19 01:46 Nitroglycerin (Nitrostat) 0.4 mg SL UD PRN PRN Reason: Chest Pain Stop: 01/09/19 01:46 Ondansetron HCl (Zofran) 4 mg IV Q6H PRN PRN Reason: Nausea Stop: 01/09/19 01:46
--- NOTE | 2018-12-10 15:23 | Neurology Consultation ---
Date of Consultation December 10, 2018 Assessment & Plan (1) Episodic memory loss: 1. MRI brain -no acute findings 2. Carotid doppler no significant stenosis 3. history of migraine 4. elevated blood pressure 5. TTE- order if not done 6. out patient EEG for possible seizure focus 7. would recommend aspirin 81 mg daily if no contraindications 8. may have been episode of transient global amnesia but not clear Supervising Physician Co-Signing Physician Notes I have seen and discussed above patient with Dr Diego Germain. Patient was seen and examined. Agree with Sandrine Ivey PA-c as noted below. Patient cu rrently back to baseline. Denies any complaints or concerns. No history of similar symptoms. Probable transient global amnesia. MRI brain negative for acute intracranial process. UDS + for ectasy. UA negative. No signs of encephalopathy or cognitive difficulties on my examine this afternoon. Recommend outpatient EEG and follow up in Neuro clinic as outpatient. History of Present Illness Reason for Consultation: memory loss? Requesting Physician: Yunier Bynum MD Attending Physician: Yunier Bynum MD History of Present Illness Laura is a 67 year old female with PMH hypothyroidism; hyperlipidemia, Dupuytren's contracture to both hands; insomnia. She went to [place], [place], for 1 month because her 3 daughters stay there. She just came back on Sunday. She drove 12 hours each day for 2 days. Her daughters are worried that she has some memory issues, she could not remember one whole day after coming to the [place], but she thinks it is all travel and stress of her youngest daughter getting . when she first arrived at the ED she thought it was 2019 but then realized it was 2019 thought the hospital was [facility] Her blood pressure was high. Systolic blood pressure but is normalizing now. She has history of ocular migraines and she gets occasional flashes in her eyes. She says mild headache in the frontal region but denies any dizziness. She states she has no leg pain and was not on an aspirin prior to the admission. She take progesterone and estrogen which she states makes her feel better. she has no leg pain and no history of DVT. Her mother and father both had heart disease but she has never had any issues with stroke or cardiovascular disease. denies CP, SOB, abdominal pain, one sided weakness, numbness tingling, N,V Allergies Allergy/AdvReac Type Severity Reaction Status Date / Time animal dander Allergy Mild EYES RED Unverified 04/03/14 11:28 AND SWOLLEN mold Allergy Mild EYES WATER Unverified 04/03/14 11:28 No Known Allergies Allergy Unknown NONE Verified 04/03/14 11:28 NEUROTIN Allergy Severe HIVES Uncoded 04/03/14 11:28 Dust Allergy Mild EYE WATER Uncoded 04/03/14 11:28 Home Medications Home Medications Medication Instructions Recorded Confirmed Type bupropion HCl [Wellbutrin XL] 150 mg PO DAILY 12/09/18 12/09/18 History estradiol 0.25 mg TRANSDERMAL [id number] 12/09/18 12/09/18 History levothyroxine 50 mcg PO DAILY 12/09/18 12/09/18 History progesterone micronized 100 mg PO UD 12/09/18 12/09/18 History amoxicillin-pot clavulanate 1 tab PO BIDM 7 Days #14 tab 12/10/18 Rx aspirin [Ecotrin Low Strength] 81 mg PO QAM 30 Days #30 tab 12/10/18 Rx Patient History Medical History Hypothyroid Social History Preferred Language: Australian Communication Ability: Effective Manager Category Required: No Beliefs That Will Affect Care: Christianity Christianity Beliefs: Zoroastrian Current Living Situation: Alone Other Information That Helps Us Care for You: No Feels Safe at Home: Yes Safety Concerns: Feels Safe At This Time Smoking Status: Never smoker Hx Alcohol Use: Yes Alcohol type: wine Hx Substance Use: No Physical Exam Physical Exam: Physical Exam: Constitutional: appearance nourished, healthy and normal Ears, Nose, Mouth and Throat: mucous membranes moist, no injection and skin normal, eyes normal Cardiovascular: normal S-1 and S-2 and regular rate and rhythm Respiratory: clear to auscultation (CTA) and no rales, rhonchi or wheeze Musculoskeletal: no peripheral edema and good distal pulses Skin: no stigmata of neurocutaneous disease noted and normal and intact Eyes: extraocular muscles intact (EOMI) and pupils equal, round and reactive to light (PERRL) NEUROLOGIC EXAMINATION: Mental status: Alert and interactive Oriented to full date and location Oriented to person Speech fluent with no evidence of aphasia Cranial Nerves smile eye brow raise symmetric, tongue midline Reflexes: Deep tendon reflexes were symmetrical and graded 2/5. Plantar responses were flexor. Sensory: intact to vibration cool and light touch Coordination: absent Gait/Stance: Posture normal. Gait normal: with steady with steps, base, turning, heel and toe walking and tandem gait. Motor: Negative for pronator drift of out stretched arms with eyes closed. Strength: biceps triceps hand cmm operator bilaterally 5/5, hip flex plantar patellar flex ext 5/5 Results & Data Vital Signs (Past 12 Hours) Vital Signs Temp Pulse Resp BP Pulse Ox 12/10/18 11:11 96 12/10/18 11:00 76 18 134/79 95 12/10/18 04:09 36.6 C 68 20 128/73 91 Laboratory Results Abnormal lab results 12/09/18 12/09/18 12/09/18 Range/Units 22:08 22:08 22:08 RBC (4.2-5.4) M/uL [place] # (Auto) 0.60 H (0.11-0.59) K/uL APTT 32.2 H (21.0-31.0) Seconds Chloride (98-107) mmol/L BUN 23 H (7-18) mg/dl BUN/Creatinine Ratio 24.2 H (10-20) Calcium (8.5-10.1) mg/dl TSH 4.700 H (0.300-4.500) uIu/ml MDMA (Ecstasy) Screen (Neg) 12/09/18 12/10/18 12/10/18 Range/Units 22:37 06:18 06:18 RBC 3.97 L (4.2-5.4) M/uL [place] # (Auto) 0.63 H (0.11-0.59) K/uL APTT (21.0-31.0) Seconds Chloride 113 H (98-107) mmol/L BUN 21 H (7-18) mg/dl BUN/Creatinine Ratio 29.3 H (10-20) Calcium 8.3 L (8.5-10.1) mg/dl TSH (0.300-4.500) uIu/ml MDMA (Ecstasy) Screen Pos H (Neg) Diagnostic Findings CT head-No acute intracranial abnormality. Acute sinusitis as described above. CXR-No acute cardiopulmonary findings. MRI brain -No acute intracranial abnormality carotid doppler-. There is no sonographic evidence of hemodynamically significant stenosis in the right or left carotid arterial system. Antegrade flow is shown in the vertebral arteries.
--- NOTE | 2018-12-11 08:19 | Discharge Summary ---
Date of Service December 11, 2018 Admission HPI Per Admitting Provider DICTATED BY: Sen Mckeon MD DATE OF ADMISSION: 12/10/2018 CHIEF COMPLAINT: Memory issues. HISTORY OF PRESENT ILLNESS: This is a 67-year-old female with past medical history significant for hypothyroidism; hyperlipidemia, not on any medication; Dupuytren's contracture to both hands; insomnia. Presents with some memory issues. The patient states she went to [place], [place], for 1 month because her 3 daughters stay there. She just came back on Sunday. She drove 12 hours each day for 2 days. Her daughters are worried that she has some memory issues, she could not remember one whole day after coming to the [facility], but she thinks it is all because of the travel and also one of her daughters is getting , all those things stressed her out and caused this problem. There was also some issue of integrated logistics operations manager coming to her house, but when asked her she stated her neighbor called integrated logistics operations manager because some plants in her house and on the neighbor's house were cut short . But when asked today's date, she needed some help and she thought it was October, then she told it is November; year, initially she told 2019, then she told 2019. When asked what is the name of the hospital, she thought it was [facility], but otherwise was able to subtract 7 from 100 twice. Oriented to name, could tell her name and her date of okay. Initially when she came here, her blood pressure was high. Systolic blood pressure in the 160s currently. She does not take any blood pressure medications. Resting comfortably. Otherwise stable. Denies any headaches, no dizziness. She has history of ocular migraines and she gets occasional flashes in her eyes. She says mild headache in the frontal region but denies any dizziness. No earaches, no runny nose, no sore throat, no difficulty swallowing. No cough, no fever, no chills, no chest pain, no shortness of breath, no nausea, no vomiting, no abdominal pain. Normal bowel and bladder movements. No hematuria or burning micturition. No melena or hematochezia. No swelling of the legs. No rash. Admission Exam Per Admitting Provider PHYSICAL EXAMINATION: GENERAL: The patient is of moderate build, not in acute distress. VITAL SIGNS: Temperature 36.4, blood pressure when she came 190/96, currently 166/77, pulse 73, respiratory rate 16, oxygen 98% on room air. HEENT: No pallor, no icterus. Pupils equal, round, and reactive to light. NECK: No JVD, no neck masses, no carotid bruits. CARDIOVASCULAR: S1, S2 heard, regular rate and rhythm, no murmur, no gallop. RESPIRATORY SYSTEM: Clear to auscultation bilaterally. No wheezing, no crackles. ABDOMEN: Soft, bowel sounds present. Nontender. No distention. CENTRAL NERVOUS SYSTEM: Cranial nerves II-XII grossly intact. Power 5/5 in all extremities. No pronator drift. Coordination of movements normal. Sensation is intact. EXTREMITIES: No edema, no erythema. Principal Diagnosis Transient and episodic memory loss, no evidence of a stroke, hypertension Discharge Exam Constitutional well developed and well nourished; no acute distress Eyes PERRL, conjunctivae normal, anicteric sclerae ENMT external ear and nose normal, oropharynx normal Neck trachea midline, no thyromegaly Respiratory normal respiratory effort Auscultation: lungs clear to auscultation bilaterally Cardiovascular Rate/Rhythm: regular rate and regular rhythm Heart Sounds: normal S1 and normal S2; no murmur Gastrointestinal (Abdomen) Inspection/Auscultation: abdomen normal to inspection and normal bowel sounds Percussion/Palpation: abdomen soft; abdomen nontender Musculoskeletal no cyanosis or clubbing, extremities motor strength 5/5 Neurologic PERRL, EOMI, accommodation nl, no face palsy, no dysarthria Discharge Data Allergies Allergy/AdvReac Type Severity Reaction Status Date / Time animal dander Allergy Mild EYES RED Unverified 04/03/14 11:28 AND SWOLLEN mold Allergy Mild EYES WATER Unverified 04/03/14 11:28 No Known Allergies Allergy Unknown NONE Verified 04/03/14 11:28 NEUROTIN Allergy Severe HIVES Uncoded 04/03/14 11:28 Dust Allergy Mild EYE WATER Uncoded 04/03/14 11:28 Consultations 12/10/18 00:08 ED Decision to Admit Stat 12/10/18 01:47 Consult Case Management - Discharge Planning Routine 12/10/18 08:00 Consult Neurology Routine Ordered Studies 12/09/18 21:52 CT head/brain wo con Stat 12/10/18 01:47 MR brain wo/w con Routine US carotid doppler BI Routine Hospital Course (1) Episodic memory loss: Memory loss seems to be resolved She has been stressed out recently with overwork and lack of sleep Recent long drive of 12 hours for 2 days in a row Clinically better and no evidence of memory impairment MRI of the brain, CT scan of the brain and carotid Doppler have been negative Awaiting of echocardiogram and neuro evaluation Likely home this afternoon (2) Hypothyroid: Continue replacement (3) HTN (hypertension): No history of hypertension Likely secondary to anxiety Blood pressure seems to be normalized Total Time Total Time Spent Total Time Spent (In Minutes): 35 minutes Total Time Includes: Examination of the Patient, Discharge Planning, Medication Reconciliation and Communication With Other Providers Discharge Plan Discharge Items Patient Disposition: Home - Self-Care Reason For Visit: NEURO SYMPTOMS Discharge Diagnosis: Transient and episodic memory loss, no evidence of a stroke, hypertension Condition: Good Discharge Goals: Decrease discomfort, Improve function and Increase independence Activity: Resume your previous activity Non-emergency contact: Primary Care Provider Call non-emergency contact if: you have any medication questions and your symptoms worsen Follow-up/Referrals: Mare Kowalski MD [Primary Care Provider] - 12/13/18 12:45 pm (Neurology will call for appointment) Diet: Heart Healthy Addtl Provider Instructions: Please take precaution to avoid falls Prescriptions: New aspirin [Ecotrin Low Strength] 81 mg Tablet,Delayed Release (Dr/Ec) 81 mg PO QAM 30 Days Qty: 30 RF: 0 amoxicillin-pot clavulanate 875-125 mg Tablet 1 tab PO BIDM 7 Days Qty: 14 RF: 0 Continued estradiol 0.025 mg/24 hr Patch Semiweekly 0.25 mg transdermal 2XWK RF: 0 levothyroxine 50 mcg Tablet 50 mcg PO DAILY RF: 0 bupropion HCl [Wellbutrin XL] 150 mg Tablet Extended Release 24 Hr 150 mg PO DAILY RF: 0 progesterone micronized 100 mg Capsule 100 mg PO UD RF: 0 Stand-Alone Forms: [facility] [employer] Discharge Orders: Discharge Order (Routine); Ordered 12/10/18 Ordered By: Yunier Bynum Admission Data Admit Date/Time: 12/10/18 00:50 Attending Provider: Yunier Bynum Admit Provider: Sen Mckeon Primary Care Provider: Kowalski,Mare F. Other Providers: Sen Mckeon ; Sandrine Ivey ; Asad Tejeda ; Sandrine Hendricks ; Alva Callaway ; Diego Germain Service: Telemetry Other Interventions: Discharge Summary Assessment (RN) Last Done: 12/10/18 17:06 DC Date/Time DO NOT enter until pt leaves facility: 12/10/18 17:33
--- NOTE | 2018-12-25 11:04 | Coding Letter ---
A supporting diagnosis is required for the test/procedure performed on this patient in order for us to be reimbursed by the patient's insurance. Please provide a supporting diagnosis for the following test/procedure listed below next to the test name along with your signature. *If there is no additional diagnosis for this patient that would support the following test/procedure please document that below next to the test/procedure. Test(s)/Procedure(s) that require a supporting diagnosis: * CAROTID DOPPLER STUDY DIAGNOSIS: Provider Signature: Date: Thank you [place] [facility] Information [employer] Once completed, please kindly fax back to [phone] For questions please call [phone] [facility]
== END 2018-12-10 17:33 | disposition home or self-care (01) ==
LOC: ED 21:24 → 2S 21:24